=== PATIENT | female | born 2000 | race Caucasian/White ===

== ENCOUNTER 2021-12-29 11:29 | Emergency (ER) | payer OTHER ==
[2021-12-29] MEDS ORDERED: diphenhydrAMINE 25 MG CAPSULE PO STA (11:41)
[2021-12-29] MEDS ORDERED: predniSONE 20 MG TABLET PO STA (11:41)
--- NOTE | 2021-12-29 13:38 | ED Physician Documentation ---
PD HPI SKIN - Stated complaint Stated Complaint: ITCHY/BODY - Chief complaint Chief Complaint: Allergic Rx - History obtained from History obtained from: Patient - Additional information Additional information: Patient comes emergency department chief complaint of hives and itching for 2 days. She states its been over her entire body. She was having seasonal allergic rhinitis type symptoms prior to that but has never had hives before. The patient has no idea what she is Reacting to. She has not started any new medications, eaten any new foods, or used any new products. No exposure to animals. She states she took Benadryl yesterday but the hives came back worse today. No oropharyngeal swelling. No difficulty breathing. No nausea or vomiting. Review of Systems Ten Systems: 10 systems reviewed and negative Constitutional: reports: Reviewed and negative Eyes: reports: Reviewed and negative Ears: reports: Reviewed and negative Nose: reports: Reviewed and negative Throat: reports: Reviewed and negative Cardiac: reports: Reviewed and negative Respiratory: reports: Reviewed and negative GI: reports: Reviewed and negative : reports: Reviewed and negative Skin: reports: Rash Musculoskeletal: reports: Reviewed and negative Neurologic: reports: Reviewed and negative Psychiatric: reports: Reviewed and negative Endocrine: reports: Reviewed and negative Immunocompromised: reports: Reviewed and negative PD PAST MEDICAL HISTORY - Present Medications Home Medications: Ambulatory Orders Medication Instructions Recorded Confirmed Famotidine [Pepcid] 20 mg PO BID #6 tablet 12/29/21 diphenhydrAMINE [Benadryl] 25 mg PO Q4-6H PRN #20 cap 12/29/21 predniSONE [Deltasone] 60 mg PO DAILY 3 Days #9 tablet 12/29/21 - Allergies Allergies/Adverse Reactions: Allergies Allergy/AdvReac Type Severity Reaction Status Date / Time No Known Drug Allergies Allergy Verified 12/29/21 11:34 PD ED PE NORMAL - Vitals Vital signs reviewed: Yes - General General: Alert and oriented X 3, No acute distress, Well developed/nourished - HEENT HEENT: Atraumatic, PERRL, EOMI, Moist mucous membranes, Pharynx benign (No oropharyngeal swelling.) - Neck Neck: Supple, no meningeal sign - Cardiac Cardiac: RRR, No murmur, Strong equal pulses - Respiratory Respiratory: No respiratory distress, Clear bilaterally - Abdomen Abdomen: Soft, Non tender, Non distended - Derm Derm: Warm and dry, Other (Urticarial and macular papular rash over extremities and trunk diffusely.) - Extremities Extremities: No deformity - Neuro Neuro: Alert and oriented X 3 - Psych Psych: Normal mood, Normal affect Results - Vitals Vitals: Vital Signs - 24 hr 12/29/21 11:35 Temperature 37.2 C Heart Rate 98 Respiratory 22 Rate Blood Pressure 118/78 O2 Saturation 98 Oxygen O2 Source Room air PD MEDICAL DECISION MAKING - ED course Complexity details: re-evaluated patient, considered differential, d/w patient ED course: Patient is given prednisone and Benadryl in the emergency department. I have given her prescriptions for the same, as well as Pepcid, for at home. We have discussed the need for follow-up if her symptoms or not better within the week. We have discussed the usual indications for return. Departure - Departure Disposition: 01 Home, Self Care Clinical Impression: Allergic urticaria Condition: Stable Instructions: ED Allergic Reaction General Other Prescriptions: diphenhydrAMINE [Benadryl] 25 mg PO Q4-6H PRN #20 cap PRN Reason: Allergy Symptoms predniSONE [Deltasone] 60 mg PO DAILY 3 Days #9 tablet Famotidine [Pepcid] 20 mg PO BID #6 tablet
[2021-12-29 13:42] VITALS: BP 120/76
== END 2021-12-29 13:42 | disposition home or self-care (01) ==
LOC: ED 11:29
DX: L50.0 Allergic urticaria (principal)
CPT/HCPCS: 99283; 99284; A9270; J7512